=== PATIENT | male | born 1975 | race Caucasian/White ===

== ENCOUNTER 2017-06-13 09:10 | Emergency (ER) | payer BC ==
[~2017-06-13] VITALS: Ht 188 cm; Wt 86.4 kg
[2017-06-13 09:56] VITALS: BP 134/72
== END 2017-06-13 09:56 | disposition home or self-care (01) ==
LOC: ED 09:10
DX: L91.8 Other hypertrophic disorders of the skin (principal); D68.9 Coagulation defect, unspecified